=== PATIENT | female | born 1970 | race Caucasian/White ===

== ENCOUNTER 2022-01-09 09:51 | Inpatient (IN) | payer SELFPAY ==
[~2022-01-09] VITALS: Ht 154.9 cm; Wt 63.5 kg
[2022-01-09 10:09] LABS: ABG BASE EXCESS -7.5 (-2.0-2.0); ABG HCO3 16.6 MEQ/L (22.0-26.0); ABG O2 SATURATION 90.3 % (95.0-99.0); ABG PARTIAL PRESSURE O2 63.7 mmHg (75.0-100.0); ABG STANDARD HCO3 18.3 MEQ/L (22.0-26.0); ABG TOTAL CO2 17.5 MEQ/L (22.0-29.0)
[2022-01-09] MEDS ORDERED: cefTRIAXone SOD 2 GM in D5W MINI-BAG PLUS 50 ML IV ONE (10:15)
[2022-01-09 10:30] LABS: HEMATOCRIT 37.6 % (36.0-47.0); HEMOGLOBIN 12.6 g/dl (12.0-15.5); MEAN CORPUSCULAR HEMOGLOBIN 29.4 pg (27.0-33.0); MEAN CORPUSCULAR HGB CONC 33.5 g/dl (32.0-36.5); MEAN CORPUSCULAR VOLUME 87.6 fl (80.0-96.0); PLATELET COUNT, AUTOMATED 112 10^3/uL (150-450); RED BLOOD COUNT 4.29 10^6/uL (4.00-5.40); WHITE BLOOD COUNT 23.3 10^3/uL (4.0-10.0)
[2022-01-09 10:44] LABS: INR 1.37; PROTHROMBIN TIME 17.3 SECONDS (12.7-14.5)
[2022-01-09 10:58] LABS: MB/CK RELATIVE INDEX 2.33 (< OR =4)
[2022-01-09] MEDS ORDERED: NS 1,000 ML IV ONE (11:00)
[2022-01-09 11:03] LABS: ALBUMIN 2.7 GM/DL (3.2-5.2); ALT/SGPT 40 U/L (12-78); ATYPICAL LYMPH 1 % (0-5); BILIRUBIN,DIRECT 2.1 MG/DL (0.0-0.2); BILIRUBIN,TOTAL 4.5 MG/DL (0.2-1.0); BLOOD UREA NITROGEN 20 MG/DL (7-18); CALCIUM LEVEL 8.3 MG/DL (8.5-10.1); CARBON DIOXIDE LEVEL 19 MEQ/L (21-32); CHLORIDE LEVEL 91 MEQ/L (98-107); CREATININE FOR GFR 1.02 MG/DL (0.55-1.30); GLOMERULAR FILTRATION RATE > 60.0 (>51); GLUCOSE, FASTING 156 MG/DL (70-100); LYMPHOCYTES 43 % (16-44); MONOCYTES 3 % (0-5); NEUTROPHILS 52 % (28-66); NT-PRO BNP 6244 PG/ML (<125); POTASSIUM SERUM 4.4 MEQ/L (3.5-5.1); SODIUM LEVEL 124 MEQ/L (136-145); TOTAL PROTEIN 7.6 GM/DL (6.4-8.2)
[2022-01-09 11:04] LABS: ANISOCYTOSIS 3+; PLATELET ESTIMATE DECREASED (NORMAL); POLYCHROMASIA 1+
[2022-01-09 11:05] LABS: SMUDGE CELLS 2+
[2022-01-09 11:07] LABS: TEAR DROP CELLS 2+
[2022-01-09 11:35] LABS: OSMOLALITY SERUM 257 MOSM/KG (275-295)
[2022-01-09] MEDS ORDERED: IVER1TAB PO (12:31)
[2022-01-09] MEDS ORDERED: HYDR200T3 PO (12:31)
[2022-01-09] MEDS ORDERED: AZIT-12 PO (12:31)
[2022-01-09] MEDS ORDERED: QUERCETIN PO (12:31)
[2022-01-09] MEDS ORDERED: HOME MED LIST COMPLETE! XX SCH (12:35)
[2022-01-09] MEDS ORDERED: FLUID PLACE HOLDER IV SCH (13:55)
[2022-01-09] MEDS ORDERED: VANCOMYCIN HCL IV SCH (13:55)
[2022-01-09] MEDS: PIPERACILLIN/TAZOBACTAM SOD 4.5 GM in D5W MINI-BAG PLUS 50 ML IV SCH ×2 (14:44→21:00)
[2022-01-09 14:45] LABS: CK-MB VALUE MASS 3.1 NG/ML (<3.6); MB/CK RELATIVE INDEX 3.97 (< OR =4)
[2022-01-09] MEDS: HEPARIN SOD (PORCINE) 5000UNITS/ML 1ML VIAL/SYRINGE SC SCH ×2 (14:46→22:00)
[2022-01-09] MEDS ORDERED: FUROSEMIDE 40MG/4ML VIAL (J1940) IV SCH (15:00)
[2022-01-09 16:19] LABS: FREE T4 1.24 NG/DL (0.76-1.46)
[2022-01-09 16:21] LABS: PH BODY FLUID 7.489 UNITS (NOT ESTABLISHED); SOURCE, BODY FLUID pH PLEURAL
[2022-01-09] MEDS: VANCOMYCIN HCL 750 MG, VIAL MATE ADAPTER 1 EACH in NS 250 ML IV SCH (16:22)
[2022-01-09 16:29] LABS: APPEARANCE, BODY FLUID CLOUDY (CLEAR); PLEURAL FL COLOR RED (COLORLESS); SOURCE, BODY FLUID PLEURAL
[2022-01-09 16:51] LABS: AMYLASE, BODY FLUID 48 U/L (NOT ESTABLISHED); CHOLESTEROL, BODY FLUID < 50 MG/DL (NOT ESTABLISHED); LDH, BODY FLUID 139 U/L (NOT ESTABLISHED); SOURCE, BODY FLUID ALBUMIN PLEURAL; SOURCE, BODY FLUID AMYLASE PLEURAL; SOURCE, BODY FLUID CHOL PLEURAL; SOURCE, BODY FLUID GLUCOSE PLEURAL; SOURCE, BODY FLUID LDH PLEURAL; SOURCE, BODY FLUID TOT PROTEIN PLEURAL; SOURCE, BODY FLUID TRIG PLEURAL; TOTAL PROTEIN, BODY FLUID 3.1 G/DL (NOT ESTABLISHED); TRIGLYCERIDE, BODY FLUID 55 MG/DL (NOT ESTABLISHED)
[2022-01-09] MEDS ORDERED: VANCOMYCIN HCL 750 MG, VIAL MATE ADAPTER 1 EACH in NS 250 ML IV ONE (17:00)
[2022-01-10] VITALS (9 sets, daily range): BP systolic 101–119; BP diastolic 67–84
[2022-01-10] MEDS: PIPERACILLIN/TAZOBACTAM SOD 4.5 GM in D5W MINI-BAG PLUS 50 ML IV SCH ×4 (02:57→21:07)
[2022-01-10] MEDS: VANCOMYCIN HCL 750 MG, VIAL MATE ADAPTER 1 EACH in NS 250 ML IV SCH (04:00)
[2022-01-10] MEDS: HEPARIN SOD (PORCINE) 5000UNITS/ML 1ML VIAL/SYRINGE SC SCH ×3 (06:00→21:08)
[2022-01-10 07:25] LABS: HEMATOCRIT 28.2 % (36.0-47.0); MEAN CORPUSCULAR HEMOGLOBIN 29.4 pg (27.0-33.0); MEAN CORPUSCULAR VOLUME 86.2 fl (80.0-96.0); RED BLOOD COUNT 3.27 10^6/uL (4.00-5.40); WHITE BLOOD COUNT 9.1 10^3/uL (4.0-10.0)
[2022-01-10 08:07] LABS: ALBUMIN 2.1 GM/DL (3.2-5.2); ALT/SGPT 39 U/L (12-78); BLOOD UREA NITROGEN 22 MG/DL (7-18); CALCIUM LEVEL 7.6 MG/DL (8.5-10.1); CARBON DIOXIDE LEVEL 24 MEQ/L (21-32); CHLORIDE LEVEL 98 MEQ/L (98-107); CREATININE FOR GFR 0.82 MG/DL (0.55-1.30); GLOMERULAR FILTRATION RATE > 60.0 (>51); GLUCOSE, FASTING 103 MG/DL (70-100); MAGNESIUM LEVEL 2.2 MG/DL (1.8-2.4); POTASSIUM SERUM 3.2 MEQ/L (3.5-5.1); SODIUM LEVEL 131 MEQ/L (136-145); TOTAL PROTEIN 5.9 GM/DL (6.4-8.2)
[2022-01-10 08:08] LABS: HEMOGLOBIN 9.6 g/dl (12.0-15.5)
[2022-01-10 08:09] LABS: PLATELET COUNT, AUTOMATED 84 10^3/uL (150-450)
[2022-01-10 08:15] LABS: ATYPICAL LYMPH 4 % (0-5); LYMPHOCYTES 35 % (16-44); METAMYELOCYTES 2 % (0-0); MONOCYTES 2 % (0-5); NEUTROPHILS 53 % (28-66)
[2022-01-10 08:16] LABS: PLATELET ESTIMATE DECREASED (NORMAL)
[2022-01-10 08:17] LABS: ANISOCYTOSIS 3+
[2022-01-10 08:19] LABS: SMUDGE CELLS 2+; TEAR DROP CELLS 2+
[2022-01-10 08:20] LABS: POIKILOCYTOSIS 1+; POLYCHROMASIA 1+; SCHISTOCYTES 1+
[2022-01-10] MEDS ORDERED: FUROSEMIDE 20MG/2ML VIAL (J1940) IV ONE (09:10)
[2022-01-10] MEDS ORDERED: POTASSIUM CHLORIDE 10MEQ SR TABLET PO ONE (09:10)
[2022-01-10 10:11] LABS: CHOLESTEROL LEVEL 102 MG/DL (<200); HDL CHOLESTEROL 15 MG/DL (>40); LDL CHOLESTEROL 53 MG/DL (<100); NON-HDL-C 87 MG/DL; TRIGLYCERIDES LEVEL 171 MG/DL (<150)
[2022-01-10] MEDS ORDERED: ISOVUE-370 76% 100ML VIAL As Ordered ONE ×2 (10:16→10:49)
[2022-01-10 10:38] LABS: HEMOGLOBIN A1c 4.7 %
[2022-01-11] VITALS (13 sets, daily range): BP systolic 95–143; BP diastolic 60–88; O2SAT 94
[2022-01-11 00:01] LABS: MAGNESIUM LEVEL 2.1 MG/DL (1.8-2.4); POTASSIUM SERUM 3.8 MEQ/L (3.5-5.1)
[2022-01-11] MEDS: PIPERACILLIN/TAZOBACTAM SOD 4.5 GM in D5W MINI-BAG PLUS 50 ML IV SCH ×4 (03:45→20:50)
[2022-01-11] MEDS ORDERED: ACETAMINOPHEN TAB 650MG DOSE (2X325MG) PO ONE (04:00)
[2022-01-11 04:54] LABS: HEMATOCRIT 29.7 % (36.0-47.0); HEMOGLOBIN 9.8 g/dl (12.0-15.5); MEAN CORPUSCULAR HEMOGLOBIN 28.7 pg (27.0-33.0); MEAN CORPUSCULAR VOLUME 86.8 fl (80.0-96.0); RED BLOOD COUNT 3.42 10^6/uL (4.00-5.40)
[2022-01-11 04:55] LABS: PLATELET COUNT, AUTOMATED 77 10^3/uL (150-450)
[2022-01-11 05:16] LABS: ATYPICAL LYMPH 9 % (0-5); LYMPHOCYTES 55 % (16-44); MONOCYTES 2 % (0-5); MYELOCYTES 1 % (0-0); NEUTROPHILS 33 % (28-66); PLATELET ESTIMATE DECREASED (NORMAL); POIKILOCYTOSIS 1+; POLYCHROMASIA 1+
[2022-01-11 05:17] LABS: ANISOCYTOSIS 3+; SMUDGE CELLS 2+; TEAR DROP CELLS 2+
[2022-01-11 05:18] LABS: SCHISTOCYTES 1+
[2022-01-11 05:27] LABS: ALBUMIN 2.1 GM/DL (3.2-5.2); ALT/SGPT 45 U/L (12-78); BILIRUBIN,TOTAL 2.7 MG/DL (0.2-1.0); BLOOD UREA NITROGEN 22 MG/DL (7-18); CALCIUM LEVEL 7.5 MG/DL (8.5-10.1); CARBON DIOXIDE LEVEL 24 MEQ/L (21-32); CHLORIDE LEVEL 100 MEQ/L (98-107); CREATININE FOR GFR 0.94 MG/DL (0.55-1.30); GLOMERULAR FILTRATION RATE > 60.0 (>51); GLUCOSE, FASTING 98 MG/DL (70-100); MAGNESIUM LEVEL 2.1 MG/DL (1.8-2.4); PHOSPHORUS LEVEL 2.4 MG/DL (2.5-4.9); POTASSIUM SERUM 3.4 MEQ/L (3.5-5.1); SODIUM LEVEL 133 MEQ/L (136-145); TOTAL PROTEIN 5.9 GM/DL (6.4-8.2)
[2022-01-11] MEDS: HEPARIN SOD (PORCINE) 5000UNITS/ML 1ML VIAL/SYRINGE SC SCH ×3 (05:41→21:05)
[2022-01-11] MEDS ORDERED: FUROSEMIDE 20MG/2ML VIAL (J1940) IV ONE (08:40)
[2022-01-11] MEDS: POTASSIUM CHLORIDE 10MEQ SR TABLET PO SCH ×2 (09:14→20:49)
[2022-01-11] MEDS: MIDODRINE 2.5 MG TAB PO SCH ×3 (09:17→15:31)
[2022-01-11] MEDS: K-PHOS ORIGINAL (POT.ACID PHOSPHATE) 500MG TAB PO SCH ×2 (12:28→20:49)
[2022-01-11] MEDS: FUROSEMIDE 20MG/2ML VIAL (J1940) IV SCH (15:32)
[2022-01-12] VITALS (22 sets, daily range): BP systolic 93–116; BP diastolic 64–75; O2SAT 94–100
[2022-01-12] MEDS ORDERED: IBUPROFEN 400MG TAB PO ONE
[2022-01-12 00:16] LABS: BLOOD UREA NITROGEN 35 MG/DL (7-18); CALCIUM LEVEL 6.8 MG/DL (8.5-10.1); CARBON DIOXIDE LEVEL 23 MEQ/L (21-32); CHLORIDE LEVEL 103 MEQ/L (98-107); CREATININE FOR GFR 0.85 MG/DL (0.55-1.30); GLOMERULAR FILTRATION RATE > 60.0 (>51); GLUCOSE, FASTING 94 MG/DL (70-100); POTASSIUM SERUM 3.6 MEQ/L (3.5-5.1); SODIUM LEVEL 133 MEQ/L (136-145)
[2022-01-12] MEDS: PIPERACILLIN/TAZOBACTAM SOD 4.5 GM in D5W MINI-BAG PLUS 50 ML IV SCH ×4 (02:16→23:54)
[2022-01-12] MEDS: HEPARIN SOD (PORCINE) 5000UNITS/ML 1ML VIAL/SYRINGE SC SCH (06:00)
[2022-01-12 06:04] LABS: BASO % 0.1 % (0.0-1.0); HEMATOCRIT 22.9 % (36.0-47.0); LYMPH # 5.4 10^3/uL (1.5-5.0); LYMPH % 78.1 % (24.0-44.0); MEAN CORPUSCULAR HEMOGLOBIN 28.6 pg (27.0-33.0); MEAN CORPUSCULAR HGB CONC 32.3 g/dl (32.0-36.5); MEAN CORPUSCULAR VOLUME 88.4 fl (80.0-96.0); MONO # 0.1 10^3/uL (0.0-0.8); NEUTROPHILS # 1.3 10^3/uL (1.5-8.5); NEUTROPHILS % 18.8 % (36.0-66.0); RED BLOOD COUNT 2.59 10^6/uL (4.00-5.40); WHITE BLOOD COUNT 6.9 10^3/uL (4.0-10.0)
[2022-01-12 06:09] LABS: HEMOGLOBIN 7.4 g/dl (12.0-15.5); PLATELET COUNT, AUTOMATED 54 10^3/uL (150-450)
[2022-01-12 06:29] LABS: ALBUMIN 1.8 GM/DL (3.2-5.2); ALT/SGPT 48 U/L (12-78); BLOOD UREA NITROGEN 45 MG/DL (7-18); CALCIUM LEVEL 7.3 MG/DL (8.5-10.1); CARBON DIOXIDE LEVEL 24 MEQ/L (21-32); CHLORIDE LEVEL 104 MEQ/L (98-107); GLOMERULAR FILTRATION RATE > 60.0 (>51); GLUCOSE, FASTING 107 MG/DL (70-100); PHOSPHORUS LEVEL 1.6 MG/DL (2.5-4.9); POTASSIUM SERUM 3.2 MEQ/L (3.5-5.1); SODIUM LEVEL 136 MEQ/L (136-145); TOTAL PROTEIN 4.9 GM/DL (6.4-8.2)
[2022-01-12] MEDS: MIDODRINE 2.5 MG TAB PO SCH ×3 (08:07→16:31)
[2022-01-12] MEDS ORDERED: ACETAMINOPHEN TAB 650MG DOSE (2X325MG) PO PRN (08:25)
[2022-01-12] MEDS ORDERED: VANCOMYCIN HCL 1,000 MG, VIAL MATE ADAPTER 1 EACH in NS 250 ML IV SCH (08:50)
[2022-01-12] MEDS ORDERED: POTASSIUM CHLORIDE 10MEQ SR TABLET PO ONE ×2 (09:15→10:00)
[2022-01-12] MEDS: FUROSEMIDE 20MG/2ML VIAL (J1940) IV SCH (09:55)
[2022-01-12] MEDS ORDERED: VANCOMYCIN HCL 750 MG, VIAL MATE ADAPTER 1 EACH in NS 250 ML IV ONE (10:00)
[2022-01-12] MEDS ORDERED: POTASSIUM PHOSPHATE INJ 18 MMOL in D5W 250 ML IV ONE (11:00)
[2022-01-12] MEDS ORDERED: VANCOMYCIN HCL 500 MG in D5W MINI-BAG PLUS 100 ML IV ONE (11:00)
[2022-01-12 14:08] LABS: APPEARANCE, BODY FLUID TURBID (CLEAR); ASCITES FL COLOR AMBER (COLORLESS); SOURCE, BODY FLUID ASCITES
[2022-01-12 14:25] LABS: SPEC. GRAVITY BODY FLUIDS 1.018 (NOT ESTABLISHED)
[2022-01-12 14:49] LABS: SOURCE, BODY FLUID ALBUMIN ASCITES; SOURCE, BODY FLUID GLUCOSE ASCITES; SOURCE, BODY FLUID TOT PROTEIN ASCITES; TOTAL PROTEIN, BODY FLUID 2.3 G/DL (NOT ESTABLISHED)
[2022-01-12 16:19] LABS: HEMATOCRIT 21.2 % (36.0-47.0); MEAN CORPUSCULAR HEMOGLOBIN 28.8 pg (27.0-33.0); MEAN CORPUSCULAR HGB CONC 32.5 g/dl (32.0-36.5); MEAN CORPUSCULAR VOLUME 88.3 fl (80.0-96.0); WHITE BLOOD COUNT 7.1 10^3/uL (4.0-10.0)
[2022-01-12 16:20] LABS: PLATELET COUNT, AUTOMATED 59 10^3/uL (150-450)
[2022-01-12 16:22] LABS: HEMOGLOBIN 6.9 g/dl (12.0-15.5)
[2022-01-12] MEDS ORDERED: FUROSEMIDE 20MG/2ML VIAL (J1940) IV SCH (17:00)
[2022-01-12 17:19] LABS: CA 125 191.5 U/ML (<30.2)
[2022-01-12] MEDS ORDERED: VANCOMYCIN HCL 500 MG in D5W MINI-BAG PLUS 100 ML IV SCH (18:00)
[2022-01-12] MEDS ORDERED: SPIRONOLACTONE 12.5MG PER 1/2 TABLET PO SCH (21:00)
[2022-01-12] MEDS: DIGOXIN 0.25 MG TAB PO SCH (21:03)
[2022-01-13] VITALS (27 sets, daily range): BP systolic 93–130; BP diastolic 62–81; O2SAT 93–98
[2022-01-13 01:46] LABS: HEMATOCRIT 26.2 % (36.0-47.0); HEMOGLOBIN 8.3 g/dl (12.0-15.5)
[2022-01-13 03:32] LABS: HEMATOCRIT 21.5 % (36.0-47.0); HEMOGLOBIN 7.1 g/dl (12.0-15.5)
[2022-01-13] MEDS: PIPERACILLIN/TAZOBACTAM SOD 4.5 GM in D5W MINI-BAG PLUS 50 ML IV SCH ×4 (04:18→20:09)
[2022-01-13 06:22] LABS: MEAN CORPUSCULAR HEMOGLOBIN 29.4 pg (27.0-33.0); MEAN CORPUSCULAR HGB CONC 33.5 g/dl (32.0-36.5); MEAN CORPUSCULAR VOLUME 87.7 fl (80.0-96.0); RED BLOOD COUNT 2.28 10^6/uL (4.00-5.40); WHITE BLOOD COUNT 8.7 10^3/uL (4.0-10.0)
[2022-01-13] MEDS: DIGOXIN 0.25 MG TAB PO SCH ×2 (06:23→13:10)
[2022-01-13 06:25] LABS: HEMOGLOBIN 6.7 g/dl (12.0-15.5); PLATELET COUNT, AUTOMATED 48 10^3/uL (150-450)
[2022-01-13 07:25] LABS: ALT/SGPT 54 U/L (12-78); BILIRUBIN,TOTAL 2.4 MG/DL (0.2-1.0); BLOOD UREA NITROGEN 48 MG/DL (7-18); CALCIUM LEVEL 7.5 MG/DL (8.5-10.1); CARBON DIOXIDE LEVEL 24 MEQ/L (21-32); CHLORIDE LEVEL 106 MEQ/L (98-107); CREATININE FOR GFR 0.72 MG/DL (0.55-1.30); GLOMERULAR FILTRATION RATE > 60.0 (>51); GLUCOSE, FASTING 98 MG/DL (70-100); PHOSPHORUS LEVEL 2.2 MG/DL (2.5-4.9); POTASSIUM SERUM 3.4 MEQ/L (3.5-5.1); SODIUM LEVEL 136 MEQ/L (136-145); TOTAL PROTEIN 4.9 GM/DL (6.4-8.2)
[2022-01-13] MEDS ORDERED: POTASSIUM CHLORIDE 10MEQ SR TABLET PO ONE (07:40)
[2022-01-13] MEDS: MIDODRINE 2.5 MG TAB PO SCH ×3 (08:06→16:09)
[2022-01-13] MEDS ORDERED: POTASSIUM PHOSPHATE INJ 18 MMOL in D5W 250 ML IV ONE (10:00)
[2022-01-13] MEDS: FUROSEMIDE 20MG/2ML VIAL (J1940) IV SCH ×2 (10:18→17:19)
[2022-01-13 10:57] LABS: HEMATOCRIT 23.2 % (36.0-47.0); HEMOGLOBIN 7.9 g/dl (12.0-15.5); MEAN CORPUSCULAR HEMOGLOBIN 30.6 pg (27.0-33.0); MEAN CORPUSCULAR HGB CONC 34.1 g/dl (32.0-36.5); MEAN CORPUSCULAR VOLUME 89.9 fl (80.0-96.0); RED BLOOD COUNT 2.58 10^6/uL (4.00-5.40); WHITE BLOOD COUNT 10.1 10^3/uL (4.0-10.0)
[2022-01-13 10:58] LABS: PLATELET COUNT, AUTOMATED 50 10^3/uL (150-450)
[2022-01-13 18:04] LABS: HEMATOCRIT 23.3 % (36.0-47.0); HEMOGLOBIN 7.7 g/dl (12.0-15.5); MEAN CORPUSCULAR HEMOGLOBIN 29.4 pg (27.0-33.0); MEAN CORPUSCULAR VOLUME 88.9 fl (80.0-96.0); RED BLOOD COUNT 2.62 10^6/uL (4.00-5.40); WHITE BLOOD COUNT 13.1 10^3/uL (4.0-10.0)
[2022-01-13 18:09] LABS: PLATELET COUNT, AUTOMATED 58 10^3/uL (150-450)
[2022-01-14] VITALS (16 sets, daily range): BP systolic 109–134; BP diastolic 72–91
[2022-01-14] MEDS: PIPERACILLIN/TAZOBACTAM SOD 4.5 GM in D5W MINI-BAG PLUS 50 ML IV SCH ×4 (04:03→22:40)
[2022-01-14 05:33] LABS: MEAN CORPUSCULAR HEMOGLOBIN 29.7 pg (27.0-33.0); MEAN CORPUSCULAR HGB CONC 33.5 g/dl (32.0-36.5); MEAN CORPUSCULAR VOLUME 88.5 fl (80.0-96.0); RED BLOOD COUNT 1.92 10^6/uL (4.00-5.40); WHITE BLOOD COUNT 15.2 10^3/uL (4.0-10.0)
[2022-01-14 05:44] LABS: HEMOGLOBIN 5.7 g/dl (12.0-15.5); PLATELET COUNT, AUTOMATED 45 10^3/uL (150-450)
[2022-01-14 06:15] LABS: ALBUMIN 1.9 GM/DL (3.2-5.2); ALT/SGPT 47 U/L (12-78); BILIRUBIN,TOTAL 2.4 MG/DL (0.2-1.0); BLOOD UREA NITROGEN 45 MG/DL (7-18); CALCIUM LEVEL 7.1 MG/DL (8.5-10.1); CARBON DIOXIDE LEVEL 23 MEQ/L (21-32); CHLORIDE LEVEL 106 MEQ/L (98-107); CREATININE FOR GFR 0.77 MG/DL (0.55-1.30); DIGOXIN LEVEL 1.1 NG/ML (0.5-2.0); GLOMERULAR FILTRATION RATE > 60.0 (>51); GLUCOSE, FASTING 103 MG/DL (70-100); POTASSIUM SERUM 3.6 MEQ/L (3.5-5.1); SODIUM LEVEL 135 MEQ/L (136-145); TOTAL PROTEIN 4.6 GM/DL (6.4-8.2)
[2022-01-14] MEDS ORDERED: PILL CUTTER 1 EACH XX PRN (08:25)
[2022-01-14 09:43] LABS: CLOSTRIDIUM DIFFICILE PCR NEGATIVE (NEGATIVE)
[2022-01-14] MEDS: FUROSEMIDE 20MG/2ML VIAL (J1940) IV SCH ×2 (10:17→16:55)
[2022-01-14] MEDS: methylPREDNISolone 40MG 1ML VIAL IV SCH ×3 (10:17→22:41)
[2022-01-14] MEDS: LOSARTAN 25 MG TAB PO SCH (10:18)
[2022-01-14] MEDS: SPIRONOLACTONE 25 MG TAB PO SCH (10:19)
[2022-01-14 16:16] LABS: HEMOGLOBIN 8.3 g/dl (12.0-15.5); MEAN CORPUSCULAR HEMOGLOBIN 29.6 pg (27.0-33.0); MEAN CORPUSCULAR HGB CONC 34.6 g/dl (32.0-36.5); MEAN CORPUSCULAR VOLUME 85.7 fl (80.0-96.0); WHITE BLOOD COUNT 8.9 10^3/uL (4.0-10.0)
[2022-01-14 16:23] LABS: PLATELET COUNT, AUTOMATED 41 10^3/uL (150-450)
[2022-01-14 16:45] LABS: IRON (FE) 207 UG/DL (50-170); PERCENT SATURATION 84.5 % (13.2-45.0); TOTAL IRON BINDING CAPACITY 245 UG/DL (250-450)
[2022-01-14 17:09] LABS: HEPATITIS B SURFACE ANTIGEN NEGATIVE (NEGATIVE)
[2022-01-14 17:36] LABS: HEPATITIS B CORE ANTIBODY IGM NEGATIVE (NEGATIVE); HEPATITIS C VIRUS ABY INDEX 0.1 INDEX (<0.8)
[2022-01-14] MEDS ORDERED: ISOVUE-370 76% 100ML VIAL As Ordered ONE (18:04)
[2022-01-14] MEDS: CHOLESTYRAMINE 4 GM PWD PKT PO SCH (18:49)
[2022-01-14 20:32] LABS: HEMATOCRIT 24.7 % (36.0-47.0); HEMOGLOBIN 8.7 g/dl (12.0-15.5); MEAN CORPUSCULAR HEMOGLOBIN 30.1 pg (27.0-33.0); MEAN CORPUSCULAR HGB CONC 35.2 g/dl (32.0-36.5); MEAN CORPUSCULAR VOLUME 85.5 fl (80.0-96.0); RED BLOOD COUNT 2.89 10^6/uL (4.00-5.40)
[2022-01-14 20:36] LABS: PLATELET COUNT, AUTOMATED 42 10^3/uL (150-450)
[2022-01-14] MEDS ORDERED: CEPACOL LOZENGE MT PRN (22:40)
[2022-01-15] VITALS: BP 116/75
[2022-01-15] MEDS: CHOLESTYRAMINE 4 GM PWD PKT PO SCH ×5 (01:51→17:30)
[2022-01-15] MEDS: methylPREDNISolone 40MG 1ML VIAL IV SCH ×4 (01:51→20:37)
[2022-01-15] MEDS: PIPERACILLIN/TAZOBACTAM SOD 4.5 GM in D5W MINI-BAG PLUS 50 ML IV SCH ×2 (03:25→10:16)
[2022-01-15 04:00] VITALS: BP 122/79
[2022-01-15 07:00] LABS: HEMATOCRIT 21.8 % (36.0-47.0); HEMOGLOBIN 7.5 g/dl (12.0-15.5); MEAN CORPUSCULAR HEMOGLOBIN 28.7 pg (27.0-33.0); MEAN CORPUSCULAR HGB CONC 34.4 g/dl (32.0-36.5); MEAN CORPUSCULAR VOLUME 83.5 fl (80.0-96.0); RED BLOOD COUNT 2.61 10^6/uL (4.00-5.40)
[2022-01-15 07:09] LABS: PLATELET COUNT, AUTOMATED 37 10^3/uL (150-450)
[2022-01-15 07:53] LABS: BLOOD UREA NITROGEN 31 MG/DL (7-18); CALCIUM LEVEL 8.1 MG/DL (8.5-10.1); CARBON DIOXIDE LEVEL 22 MEQ/L (21-32); CHLORIDE LEVEL 105 MEQ/L (98-107); CREATININE FOR GFR 0.53 MG/DL (0.55-1.30); GLOMERULAR FILTRATION RATE > 60.0 (>51); GLUCOSE, FASTING 138 MG/DL (70-100); PHOSPHORUS LEVEL 3.2 MG/DL (2.5-4.9); POTASSIUM SERUM 3.2 MEQ/L (3.5-5.1); SODIUM LEVEL 136 MEQ/L (136-145)
[2022-01-15 07:54] LABS: ALBUMIN 2.1 GM/DL (3.2-5.2); ALT/SGPT 55 U/L (12-78); BILIRUBIN,TOTAL 3.1 MG/DL (0.2-1.0); MAGNESIUM LEVEL 2.2 MG/DL (1.8-2.4); TOTAL PROTEIN 5.1 GM/DL (6.4-8.2)
[2022-01-15 08:00] VITALS: BP 113/72
[2022-01-15] MEDS: PANTOPRAZOLE 40MG VIAL IV SCH ×2 (10:16→20:37)
[2022-01-15] MEDS: SPIRONOLACTONE 25 MG TAB PO SCH (10:17)
[2022-01-15] MEDS: FUROSEMIDE 20MG/2ML VIAL (J1940) IV SCH ×2 (10:17→17:30)
[2022-01-15] MEDS: DIGOXIN 0.125 MG TAB PO SCH (10:17)
[2022-01-15] MEDS: LOSARTAN 25 MG TAB PO SCH (10:18)
[2022-01-15 12:00] VITALS: BP 116/74
[2022-01-15] MEDS ORDERED: POTASSIUM CHLORIDE 10MEQ SR TABLET PO ONE (13:15)
[2022-01-15 14:40] LABS: HEMATOCRIT 23.7 % (36.0-47.0); HEMOGLOBIN 8.1 g/dl (12.0-15.5); MEAN CORPUSCULAR HEMOGLOBIN 29.1 pg (27.0-33.0); MEAN CORPUSCULAR HGB CONC 34.2 g/dl (32.0-36.5); MEAN CORPUSCULAR VOLUME 85.3 fl (80.0-96.0); RED BLOOD COUNT 2.78 10^6/uL (4.00-5.40); WHITE BLOOD COUNT 6.6 10^3/uL (4.0-10.0)
[2022-01-15 14:49] LABS: PLATELET COUNT, AUTOMATED 32 10^3/uL (150-450)
[2022-01-15 16:00] VITALS: BP 108/77
[2022-01-15 19:14] VITALS: BP 111/69
[2022-01-15 20:00] LABS: HEMATOCRIT 25.2 % (36.0-47.0); HEMOGLOBIN 8.6 g/dl (12.0-15.5); MEAN CORPUSCULAR HEMOGLOBIN 29.5 pg (27.0-33.0); MEAN CORPUSCULAR HGB CONC 34.1 g/dl (32.0-36.5); MEAN CORPUSCULAR VOLUME 86.3 fl (80.0-96.0); RED BLOOD COUNT 2.92 10^6/uL (4.00-5.40); WHITE BLOOD COUNT 8.2 10^3/uL (4.0-10.0)
[2022-01-15 20:01] LABS: PLATELET COUNT, AUTOMATED 45 10^3/uL (150-450)
[2022-01-16] VITALS (9 sets, daily range): BP systolic 111–139; BP diastolic 63–85; O2SAT 93–96
[2022-01-16 01:24] LABS: HEMATOCRIT 21.2 % (36.0-47.0); HEMOGLOBIN 7.1 g/dl (12.0-15.5); MEAN CORPUSCULAR HEMOGLOBIN 28.7 pg (27.0-33.0); MEAN CORPUSCULAR HGB CONC 33.5 g/dl (32.0-36.5); MEAN CORPUSCULAR VOLUME 85.8 fl (80.0-96.0); PLATELET COUNT, AUTOMATED 36 10^3/uL (150-450); RED BLOOD COUNT 2.47 10^6/uL (4.00-5.40); WHITE BLOOD COUNT 5.3 10^3/uL (4.0-10.0)
[2022-01-16] MEDS: methylPREDNISolone 40MG 1ML VIAL IV SCH ×4 (02:49→20:41)
[2022-01-16] MEDS: CHOLESTYRAMINE 4 GM PWD PKT PO SCH ×4 (05:47→17:04)
[2022-01-16 08:14] LABS: HEMATOCRIT 21.9 % (36.0-47.0); HEMOGLOBIN 7.3 g/dl (12.0-15.5); MEAN CORPUSCULAR HEMOGLOBIN 29.2 pg (27.0-33.0); MEAN CORPUSCULAR HGB CONC 33.3 g/dl (32.0-36.5); MEAN CORPUSCULAR VOLUME 87.6 fl (80.0-96.0)
[2022-01-16 08:25] LABS: PLATELET COUNT, AUTOMATED 37 10^3/uL (150-450)
[2022-01-16 08:37] LABS: ALBUMIN 2.2 GM/DL (3.2-5.2); ALT/SGPT 73 U/L (12-78); BILIRUBIN,TOTAL 3.1 MG/DL (0.2-1.0); BLOOD UREA NITROGEN 25 MG/DL (7-18); CALCIUM LEVEL 7.6 MG/DL (8.5-10.1); CARBON DIOXIDE LEVEL 26 MEQ/L (21-32); CHLORIDE LEVEL 109 MEQ/L (98-107); CREATININE FOR GFR 0.59 MG/DL (0.55-1.30); GLOMERULAR FILTRATION RATE > 60.0 (>51); GLUCOSE, FASTING 121 MG/DL (70-100); MAGNESIUM LEVEL 2.2 MG/DL (1.8-2.4); PHOSPHORUS LEVEL 2.6 MG/DL (2.5-4.9); POTASSIUM SERUM 3.2 MEQ/L (3.5-5.1); SODIUM LEVEL 142 MEQ/L (136-145); TOTAL PROTEIN 5.3 GM/DL (6.4-8.2)
[2022-01-16] MEDS: FUROSEMIDE 20MG/2ML VIAL (J1940) IV SCH ×2 (08:52→16:16)
[2022-01-16] MEDS: PANTOPRAZOLE 40MG VIAL IV SCH ×2 (08:52→20:41)
[2022-01-16] MEDS: DIGOXIN 0.125 MG TAB PO SCH (08:53)
[2022-01-16] MEDS: LOSARTAN 25 MG TAB PO SCH (08:54)
[2022-01-16] MEDS: SPIRONOLACTONE 25 MG TAB PO SCH (08:54)
[2022-01-16] MEDS ORDERED: POTASSIUM CHLORIDE 10MEQ SR TABLET PO ONE ×3 (10:05→12:00)
[2022-01-16 13:35] LABS: HEMATOCRIT 22.2 % (36.0-47.0); HEMOGLOBIN 7.4 g/dl (12.0-15.5); MEAN CORPUSCULAR HEMOGLOBIN 29.4 pg (27.0-33.0); MEAN CORPUSCULAR HGB CONC 33.3 g/dl (32.0-36.5); MEAN CORPUSCULAR VOLUME 88.1 fl (80.0-96.0); RED BLOOD COUNT 2.52 10^6/uL (4.00-5.40); WHITE BLOOD COUNT 5.6 10^3/uL (4.0-10.0)
[2022-01-16 13:39] LABS: PLATELET COUNT, AUTOMATED 40 10^3/uL (150-450)
[2022-01-16 19:52] LABS: HEMATOCRIT 23.7 % (36.0-47.0); MEAN CORPUSCULAR HEMOGLOBIN 29.6 pg (27.0-33.0); MEAN CORPUSCULAR HGB CONC 33.8 g/dl (32.0-36.5); MEAN CORPUSCULAR VOLUME 87.8 fl (80.0-96.0)
[2022-01-16 19:58] LABS: PLATELET COUNT, AUTOMATED 45 10^3/uL (150-450)
[2022-01-17] VITALS (23 sets, daily range): BP systolic 119–139; BP diastolic 79–86; O2SAT 92–96
[2022-01-17] MEDS: methylPREDNISolone 40MG 1ML VIAL IV SCH ×4 (02:40→20:00)
[2022-01-17] MEDS: CHOLESTYRAMINE 4 GM PWD PKT PO SCH ×4 (05:18→17:14)
[2022-01-17 05:58] LABS: ALBUMIN 2.3 GM/DL (3.2-5.2); ALT/SGPT 87 U/L (12-78); BILIRUBIN,TOTAL 2.7 MG/DL (0.2-1.0); BLOOD UREA NITROGEN 20 MG/DL (7-18); CALCIUM LEVEL 7.5 MG/DL (8.5-10.1); CARBON DIOXIDE LEVEL 25 MEQ/L (21-32); CHLORIDE LEVEL 107 MEQ/L (98-107); GLOMERULAR FILTRATION RATE > 60.0 (>51); GLUCOSE, FASTING 127 MG/DL (70-100); PHOSPHORUS LEVEL 1.7 MG/DL (2.5-4.9); POTASSIUM SERUM 3.3 MEQ/L (3.5-5.1); SODIUM LEVEL 141 MEQ/L (136-145); TOTAL PROTEIN 5.3 GM/DL (6.4-8.2)
[2022-01-17 06:10] LABS: HEMATOCRIT 21.3 % (36.0-47.0); HEMOGLOBIN 7.4 g/dl (12.0-15.5); MEAN CORPUSCULAR HEMOGLOBIN 31.8 pg (27.0-33.0); MEAN CORPUSCULAR HGB CONC 34.7 g/dl (32.0-36.5); MEAN CORPUSCULAR VOLUME 91.4 fl (80.0-96.0); RED BLOOD COUNT 2.33 10^6/uL (4.00-5.40); WHITE BLOOD COUNT 5.8 10^3/uL (4.0-10.0)
[2022-01-17 06:11] LABS: PLATELET COUNT, AUTOMATED 45 10^3/uL (150-450)
[2022-01-17 06:51] LABS: LYMPHOCYTES 20 % (16-44); METAMYELOCYTES 2 % (0-0); MONOCYTES 7 % (0-5); MYELOCYTES 1 % (0-0); NEUTROPHILS 68 % (28-66)
[2022-01-17 06:52] LABS: ANISOCYTOSIS 4+
[2022-01-17 06:54] LABS: PLATELET ESTIMATE MARKED DECREASE (NORMAL); POIKILOCYTOSIS 1+; TEAR DROP CELLS 1+
[2022-01-17 06:55] LABS: POLYCHROMASIA 1+
[2022-01-17 06:56] LABS: SMUDGE CELLS 1+
[2022-01-17] MEDS ORDERED: POTASSIUM CHLORIDE 10MEQ SR TABLET PO ONE (07:30)
[2022-01-17] MEDS: FUROSEMIDE 20MG/2ML VIAL (J1940) IV SCH ×2 (08:24→17:00)
[2022-01-17] MEDS: DIGOXIN 0.125 MG TAB PO SCH (08:24)
[2022-01-17] MEDS: SPIRONOLACTONE 25 MG TAB PO SCH (08:25)
[2022-01-17] MEDS: PANTOPRAZOLE 40MG VIAL IV SCH (08:25)
[2022-01-17] MEDS: LOSARTAN 25 MG TAB PO SCH (08:25)
[2022-01-17] MEDS ORDERED: POTASSIUM PHOSPHATE INJ 18 MMOL in D5W 250 ML IV ONE (10:00)
[2022-01-17 18:10] LABS: HEMOGLOBIN 7.6 g/dl (12.0-15.5); MEAN CORPUSCULAR HEMOGLOBIN 29.7 pg (27.0-33.0); MEAN CORPUSCULAR VOLUME 89.8 fl (80.0-96.0); RED BLOOD COUNT 2.56 10^6/uL (4.00-5.40); WHITE BLOOD COUNT 9.2 10^3/uL (4.0-10.0)
[2022-01-17 18:13] LABS: PLATELET COUNT, AUTOMATED 55 10^3/uL (150-450)
[2022-01-18] VITALS (8 sets, daily range): BP systolic 121–123; BP diastolic 74–81; O2SAT 94
[2022-01-18] MEDS: CHOLESTYRAMINE 4 GM PWD PKT PO SCH ×3 (00:21→12:00)
[2022-01-18] MEDS: methylPREDNISolone 40MG 1ML VIAL IV SCH ×3 (02:00→14:00)
[2022-01-18 07:42] LABS: HEMATOCRIT 23.3 % (36.0-47.0); HEMOGLOBIN 7.7 g/dl (12.0-15.5); MEAN CORPUSCULAR HEMOGLOBIN 30.6 pg (27.0-33.0); MEAN CORPUSCULAR VOLUME 92.5 fl (80.0-96.0); RED BLOOD COUNT 2.52 10^6/uL (4.00-5.40); WHITE BLOOD COUNT 9.6 10^3/uL (4.0-10.0)
[2022-01-18 08:03] LABS: PLATELET COUNT, AUTOMATED 55 10^3/uL (150-450)
[2022-01-18 08:09] LABS: ALBUMIN 2.3 GM/DL (3.2-5.2); ALT/SGPT 99 U/L (12-78); BILIRUBIN,TOTAL 2.8 MG/DL (0.2-1.0); BLOOD UREA NITROGEN 15 MG/DL (7-18); CALCIUM LEVEL 7.6 MG/DL (8.5-10.1); CARBON DIOXIDE LEVEL 27 MEQ/L (21-32); CHLORIDE LEVEL 107 MEQ/L (98-107); CREATININE FOR GFR 0.55 MG/DL (0.55-1.30); GLOMERULAR FILTRATION RATE > 60.0 (>51); GLUCOSE, FASTING 105 MG/DL (70-100); MAGNESIUM LEVEL 2.1 MG/DL (1.8-2.4); PHOSPHORUS LEVEL 1.9 MG/DL (2.5-4.9); POTASSIUM SERUM 3.7 MEQ/L (3.5-5.1); SODIUM LEVEL 139 MEQ/L (136-145); TOTAL PROTEIN 5.2 GM/DL (6.4-8.2)
[2022-01-18] MEDS: SPIRONOLACTONE 25 MG TAB PO SCH (08:23)
[2022-01-18] MEDS: DIGOXIN 0.125 MG TAB PO SCH (08:24)
[2022-01-18] MEDS: FUROSEMIDE 20MG/2ML VIAL (J1940) IV SCH (08:24)
[2022-01-18] MEDS: LOSARTAN 25 MG TAB PO SCH (08:25)
[2022-01-18] MEDS ORDERED: PRED20TA PO (14:14)
[2022-01-18] MEDS ORDERED: LASI20TA3 PO (14:14)
[2022-01-18] MEDS ORDERED: CHOL4PW PO (14:14)
[2022-01-18] MEDS ORDERED: DIGO0.123 PO (14:14)
[2022-01-18] MEDS ORDERED: ALDA25TA2 PO (14:14)
[2022-01-18] MEDS ORDERED: COZA1TAB PO (14:14)
[2022-01-18] MEDS ORDERED: LOPE1CAP5 PO (14:41)
[2022-01-18 16:12] LABS: CHROMOGRANIN A 192.2 ng/mL (0.0-101.8)
[2022-01-19 15:10] LABS: BODY FLUID CULTURE Not indicated. (.); LEGIONELLA ANTIGEN URINE Negative (Negative); ORGANISM ID Not indicated. (.); SPECIMEN SOURCE Urine (.); URINE STREP PNEUMONIAE ANTIGEN Negative (Negative)
[2022-01-20 15:08] LABS: ANCA-ATYPICAL <1:20 titer (Neg:<1:20); ANTI-MITOCHONDRIAL ANTIBODY <20.0 Units (0.0-20.0); ANTINUCLEAR ANTIBODIES DIRECT Negative (Negative); CERULOPLASMIN 29.8 mg/dL (19.0-39.0); CYTOPLASMIC NEUTROP AB ANCA-C <1:20 titer (Neg:<1:20); LIVER-KIDNEY MICROSOMAL ABY <20.1 Units (0.0-20.0); PERINUCLEAR AB ANCA-P <1:20 titer (Neg:<1:20)
== END 2022-01-18 16:28 | disposition home or self-care (01) | DRG 720 ==
LOC: M ED 09:51 → EDBD 09:51 → M ED INP 13:50 → ENRESERV 01-10 08:20 → M ICU 01-10 14:09 → M PCU 01-11 11:55
PROVIDERS: ADMIT Internal Medicine; ATTEND Internal Medicine
PROC: B246ZZZ Ultrasonography of Right and Left Heart (ICD-10-PCS; principal; 2022-01-09)
PROC: 0W993ZZ Drainage of Right Pleural Cavity, Percutaneous Approach (ICD-10-PCS; 2022-01-09)
PROC: 5A09357 Assistance with Respiratory Ventilation, Less than 24 Consecutive Hours, Continuous Positive Airway Pressure (ICD-10-PCS; 2022-01-09)
PROC: 0W9G3ZZ Drainage of Peritoneal Cavity, Percutaneous Approach (ICD-10-PCS; 2022-01-12)
DX: A41.9 Sepsis, unspecified organism (principal); J96.01 Acute respiratory failure with hypoxia; I50.23 Acute on chronic systolic (congestive) heart failure; J90 Pleural effusion, not elsewhere classified; J81.1 Chronic pulmonary edema; J94.8 Other specified pleural conditions; E87.2 Acidosis; J18.9 Pneumonia, unspecified organism; C22.0 Liver cell carcinoma; D69.6 Thrombocytopenia, unspecified; I50.811 Acute right heart failure; I11.0 Hypertensive heart disease with heart failure; I27.29 Other secondary pulmonary hypertension; R18.8 Other ascites; C91.90 Lymphoid leukemia, unspecified not having achieved remission; R16.2 Hepatomegaly with splenomegaly, not elsewhere classified; E87.1 Hypo-osmolality and hyponatremia; D59.9 Acquired hemolytic anemia, unspecified; E83.39 Other disorders of phosphorus metabolism; K56.7 Ileus, unspecified; K76.1 Chronic passive congestion of liver; R91.8 Other nonspecific abnormal finding of lung field; K21.9 Gastro-esophageal reflux disease without esophagitis; E80.6 Other disorders of bilirubin metabolism; R00.0 Tachycardia, unspecified; Z20.822 Contact with and (suspected) exposure to COVID-19; R74.01 Elevation of levels of liver transaminase levels; Z66 Do not resuscitate; E87.6 Hypokalemia; R19.7 Diarrhea, unspecified; K80.20 Calculus of gallbladder without cholecystitis without obstruction

== ENCOUNTER → 2022-02-01 | Outpatient (CLI) | payer SELFPAY ==
[~2022-02-01] MED LIST: ALDA25TA2 PO; AZIT-12 PO; CHOL4PW PO; COZA1TAB PO; DIGO0.123 PO; HYDR200T3 PO; IVER1TAB PO; LASI20TA3 PO; LOPE1CAP5 PO; PRED20TA PO; QUERCETIN PO
[2022-02-01 12:30] LABS: HEMATOCRIT 24.8 % (36.0-47.0); HEMOGLOBIN 7.3 g/dl (12.0-15.5); MEAN CORPUSCULAR HEMOGLOBIN 27.1 pg (27.0-33.0); MEAN CORPUSCULAR HGB CONC 29.4 g/dl (32.0-36.5); MEAN CORPUSCULAR VOLUME 92.2 fl (80.0-96.0); PLATELET COUNT, AUTOMATED 175 10^3/uL (150-450); RED BLOOD COUNT 2.69 10^6/uL (4.00-5.40)
[2022-02-01 12:57] LABS: ATYPICAL LYMPH 5 % (0-5); EOSINOPHILS 1 % (0-3); LYMPHOCYTES 45 % (16-44); METAMYELOCYTES 3 % (0-0); MYELOCYTES 1 % (0-0); PROMYELOCYTES 1 % (0-0)
[2022-02-01 13:07] LABS: NEUTROPHILS 40 % (28-66)
[2022-02-01 13:09] LABS: MONOCYTES 1 % (0-5); TEAR DROP CELLS 2+
[2022-02-01 13:10] LABS: MICROCYTOSIS 1+; POLYCHROMASIA 1+
[2022-02-01 13:11] LABS: PLATELET ESTIMATE NORMAL (NORMAL)
[2022-02-01 13:12] LABS: STOMATOCYTES 1+
== END ==
LOC: M LAB 11:48
PROVIDERS: ATTEND Student in an Organized Health Care Education/Training Program
DX: C91.Z0 Other lymphoid leukemia not having achieved remission (principal); D63.8 Anemia in other chronic diseases classified elsewhere

== ENCOUNTER 2022-02-04 07:58 | Emergency (ER) | payer SELFPAY ==
[~2022-02-04] VITALS: Ht 154.9 cm; Wt 54.9 kg
[2022-02-04 08:46] LABS: BASO % 0.2 % (0.0-1.0); EOS % 0.3 % (0.0-3.0); HEMATOCRIT 27.3 % (36.0-47.0); HEMOGLOBIN 7.8 g/dl (12.0-15.5); LYMPH # 6.7 10^3/uL (1.5-5.0); LYMPH % 62.9 % (24.0-44.0); MEAN CORPUSCULAR HEMOGLOBIN 26.3 pg (27.0-33.0); MEAN CORPUSCULAR HGB CONC 28.6 g/dl (32.0-36.5); MEAN CORPUSCULAR VOLUME 91.9 fl (80.0-96.0); MONO # 0.4 10^3/uL (0.0-0.8); MONO % 3.4 % (2.0-8.0); NEUTROPHILS # 3.2 10^3/uL (1.5-8.5); NEUTROPHILS % 29.4 % (36.0-66.0); PLATELET COUNT, AUTOMATED 227 10^3/uL (150-450); RED BLOOD COUNT 2.97 10^6/uL (4.00-5.40); WHITE BLOOD COUNT 10.7 10^3/uL (4.0-10.0)
[2022-02-04 09:21] LABS: RSV AMPLIFICATION NEGATIVE (NEGATIVE)
[2022-02-04 09:31] LABS: ALBUMIN 2.9 GM/DL (3.2-5.2); ALT/SGPT 65 U/L (12-78); BILIRUBIN,DIRECT 0.7 MG/DL (0.0-0.2); BILIRUBIN,TOTAL 1.9 MG/DL (0.2-1.0); BLOOD UREA NITROGEN 17 MG/DL (7-18); CALCIUM LEVEL 8.6 MG/DL (8.5-10.1); CARBON DIOXIDE LEVEL 26 MEQ/L (21-32); CHLORIDE LEVEL 103 MEQ/L (98-107); GLOMERULAR FILTRATION RATE > 60.0 (>51); GLUCOSE, FASTING 86 MG/DL (70-100); LIPASE 2773 U/L (73-393); POTASSIUM SERUM 5.1 MEQ/L (3.5-5.1); SODIUM LEVEL 132 MEQ/L (136-145); TOTAL PROTEIN 7.3 GM/DL (6.4-8.2)
[2022-02-04 12:15] VITALS: BP 124/79
== END 2022-02-04 12:29 | disposition home or self-care (01) ==
LOC: M ED 07:58
DX: D64.9 Anemia, unspecified (principal); I10 Essential (primary) hypertension; I50.9 Heart failure, unspecified; C95.90 Leukemia, unspecified not having achieved remission; Z79.899 Other long term (current) drug therapy

== ENCOUNTER → 2022-03-30 | Outpatient (CLI) | payer SELFPAY ==
[2022-03-30 15:22] LABS: BASO % 0.3 % (0.0-1.0); EOS % 0.1 % (0.0-3.0); HEMATOCRIT 25.6 % (36.0-47.0); HEMOGLOBIN 8.1 g/dl (12.0-15.5); LYMPH # 5.3 10^3/uL (1.5-5.0); LYMPH % 70.6 % (24.0-44.0); MEAN CORPUSCULAR HEMOGLOBIN 26.5 pg (27.0-33.0); MEAN CORPUSCULAR HGB CONC 31.6 g/dl (32.0-36.5); MEAN CORPUSCULAR VOLUME 83.7 fl (80.0-96.0); MONO # 0.3 10^3/uL (0.0-0.8); NEUTROPHILS # 1.8 10^3/uL (1.5-8.5); NEUTROPHILS % 23.5 % (36.0-66.0); PLATELET COUNT, AUTOMATED 128 10^3/uL (150-450); RED BLOOD COUNT 3.06 10^6/uL (4.00-5.40); WHITE BLOOD COUNT 7.5 10^3/uL (4.0-10.0)
== END ==
LOC: M LAB 14:09
PROVIDERS: ATTEND Student in an Organized Health Care Education/Training Program
DX: D64.9 Anemia, unspecified (principal)

== ENCOUNTER → 2022-06-29 | Outpatient (CLI) | payer SELFPAY ==
[2022-06-29 11:54] LABS: HEMATOCRIT 28.6 % (36.0-47.0); HEMOGLOBIN 8.8 g/dl (12.0-15.5); MEAN CORPUSCULAR HEMOGLOBIN 27.1 pg (27.0-33.0); MEAN CORPUSCULAR HGB CONC 30.8 g/dl (32.0-36.5); PLATELET COUNT, AUTOMATED 163 10^3/uL (150-450); RED BLOOD COUNT 3.25 10^6/uL (4.00-5.40); WHITE BLOOD COUNT 14.2 10^3/uL (4.0-10.0)
[2022-06-29 13:28] LABS: ATYPICAL LYMPH 3 % (0-5); LYMPHOCYTES 67 % (16-44); MONOCYTES 3 % (0-5); NEUTROPHILS 27 % (28-66); PLATELET ESTIMATE NORMAL (NORMAL)
[2022-06-29 13:29] LABS: ANISOCYTOSIS 4+; HYPOCHROMASIA 1+
[2022-06-29 13:31] LABS: TEAR DROP CELLS 2+
[2022-06-29 13:32] LABS: SPHEROCYTES 2+
[2022-06-29 13:33] LABS: STOMATOCYTES 1+
[2022-06-29 13:34] LABS: OVALOCYTES 1+
[2022-06-29 15:31] LABS: FREE T4 1.02 NG/DL (0.89-1.76); THYROID STIMULATING HORMONE 4.728 uIU/ML (0.55-4.78)
== END ==
LOC: M LAB 11:06
PROVIDERS: ATTEND Student in an Organized Health Care Education/Training Program
DX: Z79.899 Other long term (current) drug therapy (principal); D63.8 Anemia in other chronic diseases classified elsewhere

== ENCOUNTER → 2022-09-27 | Outpatient (CLI) | payer SELFPAY ==
[~2022-09-27] MED LIST changes: +DIGETAB4 PO; +FURO40TA2 PO; +LOSA50TA28 PO; +SPIR-10 PO
[2022-09-27 12:41] LABS: HEMATOCRIT 28.7 % (36.0-47.0); HEMOGLOBIN 9.6 g/dl (12.0-15.5); MEAN CORPUSCULAR HEMOGLOBIN 32.9 pg (27.0-33.0); MEAN CORPUSCULAR HGB CONC 33.4 g/dl (32.0-36.5); MEAN CORPUSCULAR VOLUME 98.3 fl (80.0-96.0); PLATELET COUNT, AUTOMATED 110 10^3/uL (150-450); RED BLOOD COUNT 2.92 10^6/uL (4.00-5.40); WHITE BLOOD COUNT 20.9 10^3/uL (4.0-10.0)
[2022-09-27 13:28] LABS: ALBUMIN 1.8 G/DL (3.2-5.2); ALKALINE PHOSPHATASE 617 U/L (46-116); ALT/SGPT 97 U/L (7.0-40); AST/SGOT 194 U/L (<34); BLOOD UREA NITROGEN 16 MG/DL (9-23); CALCIUM LEVEL 7.6 MG/DL (8.5-10.1); CARBON DIOXIDE LEVEL 27 MMOL/L (20-31); CHLORIDE LEVEL 93 MMOL/L (98-107); CREATININE FOR GFR 0.45 MG/DL (0.55-1.30); GLOMERULAR FILTRATION RATE > 60.0 (>51); GLUCOSE, FASTING 112 MG/DL (60-100); POTASSIUM SERUM 3.6 MMOL/L (3.5-5.1); SODIUM LEVEL 126 MMOL/L (136-145); TOTAL PROTEIN 5.5 G/DL (5.7-8.2)
== END ==
LOC: M LAB 11:29
PROVIDERS: ATTEND Physician Assistant
DX: I50.20 Unspecified systolic (congestive) heart failure (principal)

== ENCOUNTER 2022-09-29 17:34 | Inpatient (IN) | payer SELFPAY ==
[2022-09-29] VITALS (7 sets, daily range): BP systolic 81–106; BP diastolic 50–57
[~2022-09-29] VITALS: Ht 154.9 cm; Wt 47.2 kg
[~2022-09-29 17:34] MED LIST changes: -DIGETAB4 PO; -FURO40TA2 PO; -LOSA50TA28 PO; +PIPERACILLIN/TAZOBACTAM SOD 4.5 GM in D5W MINI-BAG PLUS 50 ML IV SCH; -SPIR-10 PO
[2022-09-29] MEDS ORDERED: NS 500 ML IV ONE (18:15)
[2022-09-29] MEDS ORDERED: PANTOPRAZOLE 40MG VIAL IV ONE (18:15)
[2022-09-29 18:29] LABS: MEAN CORPUSCULAR HEMOGLOBIN 33.1 pg (27.0-33.0); MEAN CORPUSCULAR HGB CONC 32.7 g/dl (32.0-36.5); MEAN CORPUSCULAR VOLUME 101.2 fl (80.0-96.0); PLATELET COUNT, AUTOMATED 132 10^3/uL (150-450); RED BLOOD COUNT 1.66 10^6/uL (4.00-5.40)
[2022-09-29 18:34] LABS: HEMATOCRIT 16.8 % (36.0-47.0); HEMOGLOBIN 5.5 g/dl (12.0-15.5)
[2022-09-29 18:44] LABS: INR 1.39; PROTHROMBIN TIME 17.3 SECONDS (12.5-14.5)
[2022-09-29 18:45] LABS: PARTIAL THROMBOPLASTIN TIME 41.9 SECONDS (24.8-34.2)
[2022-09-29] MEDS ORDERED: cefTRIAXone SOD 2 GM in D5W MINI-BAG PLUS 50 ML IV ONE (18:45)
[2022-09-29 18:56] LABS: ATYPICAL LYMPH 2 % (0-5); LYMPHOCYTES 74 % (16-44); NEUTROPHILS 23 % (28-66)
[2022-09-29 18:58] LABS: ANISOCYTOSIS 2+; SMUDGE CELLS 2+
[2022-09-29 19:00] LABS: CPK CREATINE PHOSPHOKINASE 17 U/L (34-145)
[2022-09-29 19:01] LABS: HYPOCHROMASIA 1+
[2022-09-29 19:02] LABS: PLATELET ESTIMATE DECREASED (NORMAL)
[2022-09-29 19:06] LABS: ALBUMIN 1.5 G/DL (3.2-5.2); ALKALINE PHOSPHATASE 442 U/L (46-116); ALT/SGPT 83 U/L (7.0-40); AST/SGOT 175 U/L (<34); BILIRUBIN,DIRECT 3.7 MG/DL (<0.4); BILIRUBIN,TOTAL 5.9 MG/DL (0.3-1.2); BLOOD UREA NITROGEN 35 MG/DL (9-23); CALCIUM LEVEL 7.4 MG/DL (8.5-10.1); CARBON DIOXIDE LEVEL 23 MMOL/L (20-31); CHLORIDE LEVEL 98 MMOL/L (98-107); CK-MB VALUE MASS < 1.0 NG/ML (<3.6); CREATININE FOR GFR 0.47 MG/DL (0.55-1.30); GLOMERULAR FILTRATION RATE > 60.0 (>51); GLUCOSE, FASTING 113 MG/DL (60-100); MB/CK RELATIVE INDEX 5.88 (< OR =4); SODIUM LEVEL 129 MMOL/L (136-145); THYROID STIMULATING HORMONE 0.315 uIU/ML (0.55-4.78)
[2022-09-29 19:38] LABS: RSV AMPLIFICATION NEGATIVE (NEGATIVE)
[2022-09-29] MEDS ORDERED: NS 1,000 ML IV ONE (20:15)
[2022-09-29 21:04] LABS: DIGOXIN LEVEL 0.2 NG/ML (0.8-2.0)
[2022-09-29 21:05] LABS: TOTAL PROTEIN 4.6 G/DL (5.7-8.2)
[2022-09-29] MEDS ORDERED: LOSA50TA28 PO (21:20)
[2022-09-29] MEDS ORDERED: SPIR-10 PO (21:20)
[2022-09-29] MEDS ORDERED: FURO40TA2 PO (21:20)
[2022-09-29] MEDS ORDERED: HOME MED LIST COMPLETE! XX SCH (21:20)
[2022-09-29] MEDS ORDERED: DIGO0.123 PO (21:20)
[2022-09-29] MEDS ORDERED: DIGETAB4 PO (21:22)
[2022-09-29] MEDS ORDERED: MOM 30ML SUSPENSION UDC PO PRN (22:50)
[2022-09-29] MEDS ORDERED: VANCOMYCIN HCL 1,000 MG, VIAL MATE ADAPTER 1 EACH in NS 250 ML IV SCH (23:40)
[2022-09-29] MEDS: LR 1,000 ML IV SCH (23:48)
[2022-09-30] VITALS (63 sets, daily range): BP systolic 73–137; BP diastolic 49–82
[2022-09-30] MEDS: OCTREOTIDE ACETATE 1,200 MCG in NS 238.8 ML IV SCH ×2 (01:33→23:37)
[2022-09-30] MEDS ORDERED: LR 1,000 ML IV ONE (01:45)
[2022-09-30] MEDS ORDERED: VANCOMYCIN HCL 1,000 MG, VIAL MATE ADAPTER 1 EACH in D5W 250 ML IV ONE (02:00)
[2022-09-30 02:20] LABS: HEMOGLOBIN 6.5 g/dl (12.0-15.5)
[2022-09-30 02:21] LABS: HEMATOCRIT 19.3 % (36.0-47.0)
[2022-09-30] MEDS ORDERED: PIPERACILLIN/TAZOBACTAM SOD 4.5 GM in D5W MINI-BAG PLUS 50 ML IV SCH (03:00)
[2022-09-30] MEDS: NOREPINEPHRINE 4MG IN D5 250ML 4 MG in IV 1 EA IV SCH ×4 (03:15→18:25)
[2022-09-30 03:49] LABS: APPEARANCE, URINE HAZY (CLEAR); BILIRUBIN, URINE AUTO NEGATIVE (NEGATIVE); BLOOD, URINE BLOOD 1+ (NEGATIVE); COLOR, URINE AMBER (YELLOW); GLUCOSE, URINE (UA) AUTO NEGATIVE (NEGATIVE); KETONE, URINE AUTO NEGATIVE (NEGATIVE); LEUKOCYTE ESTERASE, URINE AUTO NEGATIVE (NEGATIVE); NITRITE, URINE AUTO POSITIVE (NEGATIVE); PROTEIN, URINE AUTO NEGATIVE (NEGATIVE); SPECIFIC GRAVITY URINE AUTO 1.018 (1.002-1.035); UROBILINOGEN, URINE AUTO 0.2 mg/dL (0.0-2.0)
[2022-09-30 03:58] LABS: BACTERIA, URINE AUTO 1+ (NEGATIVE); MUCUS, URINE SMALL (NEGATIVE); RBC, URINE AUTO 1 /HPF (0-3); SQUAMOUS EPITHELIAL CELL UR AU 1 /HPF (0-6); WBC, URINE AUTO 5 /HPF (0-3)
[2022-09-30 05:22] LABS: ALBUMIN 1.2 G/DL (3.2-5.2); ALKALINE PHOSPHATASE 299 U/L (46-116); ALT/SGPT 67 U/L (7.0-40); AST/SGOT 132 U/L (<34); BILIRUBIN,TOTAL 4.3 MG/DL (0.3-1.2); BLOOD UREA NITROGEN 32 MG/DL (9-23); CALCIUM LEVEL 6.3 MG/DL (8.5-10.1); CARBON DIOXIDE LEVEL 21 MMOL/L (20-31); CHLORIDE LEVEL 105 MMOL/L (98-107); CREATININE FOR GFR 0.43 MG/DL (0.55-1.30); GLOMERULAR FILTRATION RATE > 60.0 (>51); GLUCOSE, FASTING 100 MG/DL (60-100); POTASSIUM SERUM 3.9 MMOL/L (3.5-5.1); SODIUM LEVEL 135 MMOL/L (136-145); TOTAL PROTEIN 3.6 G/DL (5.7-8.2)
[2022-09-30] MEDS: PIPERACILLIN/TAZOBACTAM SOD 4.5 GM in D5W MINI-BAG PLUS 50 ML IV SCH ×4 (06:45→23:29)
[2022-09-30] MEDS ORDERED: ENOXAPARIN 40MG/0.4ML SYRINGE (J1650 PER 10MG) SC SCH (09:00)
[2022-09-30] MEDS ORDERED: VANCOMYCIN HCL 750 MG, VIAL MATE ADAPTER 1 EACH in D5W 250 ML IV SCH (09:00)
[2022-09-30] MEDS: PANTOPRAZOLE 40MG VIAL IV SCH ×2 (09:00→21:54)
[2022-09-30] MEDS: DIGOXIN 0.125 MG TAB PO SCH (09:01)
[2022-09-30 10:38] LABS: MEAN CORPUSCULAR HEMOGLOBIN 32.7 pg (27.0-33.0); MEAN CORPUSCULAR HGB CONC 34.6 g/dl (32.0-36.5); MEAN CORPUSCULAR VOLUME 94.7 fl (80.0-96.0); RED BLOOD COUNT 2.84 10^6/uL (4.00-5.40); WHITE BLOOD COUNT 19.6 10^3/uL (4.0-10.0)
[2022-09-30 11:11] LABS: HEMATOCRIT 26.9 % (36.0-47.0); HEMOGLOBIN 9.3 g/dl (12.0-15.5); PLATELET COUNT, AUTOMATED 78 10^3/uL (150-450)
[2022-09-30 15:02] LABS: HEMATOCRIT 26.2 % (36.0-47.0); HEMOGLOBIN 8.9 g/dl (12.0-15.5)
[2022-09-30] MEDS: LR 1,000 ML IV SCH (16:00)
[2022-09-30] MEDS ORDERED: propofoL 200 MG/20 ML VIAL As Ordered ONE (18:18)
[2022-09-30] MEDS ORDERED: LIDOCAINE 2% 100MG/5ML SDV (FOR ANES.) As Ordered ONE (18:18)
[2022-09-30] MEDS ORDERED: ONDANSETRON 4MG 2ML VIAL IV PRN (18:35)
[2022-09-30 21:53] LABS: HEMATOCRIT 23.6 % (36.0-47.0); HEMOGLOBIN 8.2 g/dl (12.0-15.5)
[2022-10-01] VITALS (21 sets, daily range): BP systolic 98–136; BP diastolic 55–92
[2022-10-01 03:51] LABS: HEMOGLOBIN 7.1 g/dl (12.0-15.5); MEAN CORPUSCULAR HEMOGLOBIN 32.1 pg (27.0-33.0); MEAN CORPUSCULAR VOLUME 94.6 fl (80.0-96.0); RED BLOOD COUNT 2.21 10^6/uL (4.00-5.40); WHITE BLOOD COUNT 22.9 10^3/uL (4.0-10.0)
[2022-10-01 03:52] LABS: HEMATOCRIT 20.9 % (36.0-47.0)
[2022-10-01 03:53] LABS: PLATELET COUNT, AUTOMATED 93 10^3/uL (150-450)
[2022-10-01 03:58] LABS: ALBUMIN 1.2 G/DL (3.2-5.2); ALKALINE PHOSPHATASE 249 U/L (46-116); ALT/SGPT 102 U/L (7.0-40); AST/SGOT 196 U/L (<34); BILIRUBIN,TOTAL 4.5 MG/DL (0.3-1.2); BLOOD UREA NITROGEN 32 MG/DL (9-23); CALCIUM LEVEL 6.2 MG/DL (8.5-10.1); CARBON DIOXIDE LEVEL 22 MMOL/L (20-31); CHLORIDE LEVEL 108 MMOL/L (98-107); CREATININE FOR GFR 0.63 MG/DL (0.55-1.30); GLOMERULAR FILTRATION RATE > 60.0 (>51); GLUCOSE, FASTING 122 MG/DL (60-100); POTASSIUM SERUM 3.7 MMOL/L (3.5-5.1); SODIUM LEVEL 137 MMOL/L (136-145); TOTAL PROTEIN 3.5 G/DL (5.7-8.2)
[2022-10-01] MEDS: PIPERACILLIN/TAZOBACTAM SOD 4.5 GM in D5W MINI-BAG PLUS 50 ML IV SCH ×3 (06:12→17:47)
[2022-10-01] MEDS: PANTOPRAZOLE 40MG VIAL IV SCH (09:32)
[2022-10-01] MEDS: DIGOXIN 0.125 MG TAB PO SCH (09:32)
[2022-10-01] MEDS: NOREPINEPHRINE 4MG IN D5 250ML 4 MG in IV 1 EA IV SCH ×2 (11:05)
[2022-10-01] MEDS: PANTOPRAZOLE SODIUM 40 MG in D5W 50 ML IV SCH ×3 (13:26→23:01)
[2022-10-01 13:41] LABS: HEMOGLOBIN 9.9 g/dl (12.0-15.5)
[2022-10-01] MEDS ORDERED: ATIV1TAB10 PO (15:18)
[2022-10-01] MEDS ORDERED: MORP1SOL5 PO (15:18)
[2022-10-01] MEDS ORDERED: HYOS125TA PO (15:18)
[2022-10-01 15:44] LABS: HEMATOCRIT 29.8 % (36.0-47.0); HEMOGLOBIN 10.2 g/dl (12.0-15.5)
[2022-10-01 21:09] LABS: HEMATOCRIT 27.4 % (36.0-47.0); HEMOGLOBIN 9.4 g/dl (12.0-15.5)
[2022-10-01] MEDS: OCTREOTIDE ACETATE 1,200 MCG in NS 238.8 ML IV SCH (21:25)
[2022-10-02] VITALS: BP 115/71
[2022-10-02] MEDS: PIPERACILLIN/TAZOBACTAM SOD 4.5 GM in D5W MINI-BAG PLUS 50 ML IV SCH ×2 (00:55→06:20)
[2022-10-02 04:00] VITALS: BP 103/68
[2022-10-02] MEDS: PANTOPRAZOLE SODIUM 40 MG in D5W 50 ML IV SCH ×2 (04:11→08:44)
[2022-10-02 08:10] VITALS: BP 100/62
[2022-10-02] MEDS: DIGOXIN 0.125 MG TAB PO SCH (08:44)
[2022-10-02 09:58] LABS: HEMATOCRIT 31.2 % (36.0-47.0); HEMOGLOBIN 10.4 g/dl (12.0-15.5)
== END 2022-10-02 12:07 | disposition home or self-care (01) | DRG 243 ==
LOC: M ED 17:34 → M ED INP 22:49 → ENRESERVDT 23:45 → ENRESERVTM 23:45 → M ICU 09-30 00:42 → M PCU 10-01 21:02
PROVIDERS: ADMIT Internal Medicine; ATTEND General Practice
PROC: 30233N1 Transfusion of Nonautologous Red Blood Cells into Peripheral Vein, Percutaneous Approach (ICD-10-PCS; principal; 2022-09-29)
PROC: 0DJ08ZZ Inspection of Upper Intestinal Tract, Via Natural or Artificial Opening Endoscopic (ICD-10-PCS; 2022-09-30)
DX: K22.11 Ulcer of esophagus with bleeding (principal); R65.20 Severe sepsis without septic shock; R57.1 Hypovolemic shock; R64 Cachexia; C78.00 Secondary malignant neoplasm of unspecified lung; C78.7 Secondary malignant neoplasm of liver and intrahepatic bile duct; I11.0 Hypertensive heart disease with heart failure; A41.9 Sepsis, unspecified organism; D69.6 Thrombocytopenia, unspecified; I50.22 Chronic systolic (congestive) heart failure; I95.9 Hypotension, unspecified; C91.50 Adult T-cell lymphoma/leukemia (HTLV-1-associated) not having achieved remission; E87.20 Acidosis, unspecified; I42.0 Dilated cardiomyopathy; D62 Acute posthemorrhagic anemia; K74.60 Unspecified cirrhosis of liver; Z66 Do not resuscitate; R74.01 Elevation of levels of liver transaminase levels; R26.89 Other abnormalities of gait and mobility; Z79.899 Other long term (current) drug therapy; Z20.822 Contact with and (suspected) exposure to COVID-19